=== PATIENT | male | born 1955 | race Caucasian/White ===

== ENCOUNTER 2025-05-20 12:22 | Emergency (ER) | payer MEDICARE, SELFPAY ==
[2025-05-20 12:23] VITALS: BP 157/103; PULSE 118; RESP 20; TEMP 36.4; O2SAT 96
[2025-05-20 12:27] VITALS: BP 141/92; PULSE 116; RESP 18; TEMP 36.4; O2SAT 97; BMI 26.2
--- NOTE | 2025-05-20 12:47 | CT_ITS ---
PROCEDURE: BRAIN/HEAD WITHOUT CONTRAST 05/20/2025 REASON FOR EXAM: ACUTE ALTERED MENTAL STATUS, RECENT FALL TECHNIQUE: Procedure Code: CTBR Modality: CT Procedure: BRAIN/HEAD WITHOUT CONTRAST Coronal and Sagittal reconstruction series were provided. One or more dose reduction techniques were used (e.g., Automated exposure control, adjustment of the mA and/or kV according to patient size, use of iterative reconstruction technique. RADIATION DOSE SUMMARY: CTDlvol: 45 mGy DLP: 829 mGycm COMPARISON: None FINDINGS: Brain: Small focus of intraparenchymal hemorrhage is seen directly superior to the lateral sulcus in the parietal lobe, likely the postcentral gyrus. This measures 14.5 x 13.5 x 8.6 mm. No evidence of acute ischemia. Mild low-density in the periventricular white matter from chronic microvascular ischemic change. CSF Spaces: No midline shift or mass effect. No hydrocephalus. Some calcification along the course of the choroid at the left temporal portion. Sinuses/Mastoids: Clear Bones: No skull fracture. Small amounts of venous gas are shown in the quality control assistant space, cavernous sinus region and along the superior sagittal sinus. CT/Brain/Head without Contrast IMPRESSION: Small intraparenchymal hemorrhage just superior to the lateral sulcus in the po stcentral gyrus on the right measures up to 14.5 mm. Non-specific small amounts of venous gas are shown in the quality control assistant space, cav ernous sinus region and superior sagittal sinus. A tiny amount of gas is shown in the right jugular vein is well when compared t o the neck/chest CT [place] Alert: Small intraparenchymal hemorrhage The critical findings in the findings and impression above were relayed directl y by me by telephone to Piyush Hebert on 05/20/2025 at 2:04 pm with readback verification. Reading Location: [id number]
--- NOTE | 2025-05-20 12:47 | CT_ITS ---
PROCEDURE: CTA CHEST W/WO CONTRAST; CTA ABD W/RUNOFF W/WO CONTRAST 05/20/2025 REASON FOR EXAM: 4943.46; NO SLOW LEFT LOWER EXTREMITY DISTAL FEMORAL ARTERY TECHNIQUE: Procedure Code: CTCTACHWW; [id number] Modality: CT Procedure: CTA CHEST W/WO CONTRAST; CTA ABD W/RUNOFF W/WO CONTRAST CT Angiography of the chest, abdomen and pelvis with runoff to the bilateral lower extremities. Multiplanar Sagittal and Coronal images were obtained. 3D post processing was performed. CONTRAST: Isovue-300 VOLUME: 100 mL One or more dose reduction techniques were used (e.g., Automated exposure control, adjustment of the mA and/or kV according to patient size, use of iterative reconstruction technique). RADIATION DOSE SUMMARY: DLP: 4943.46 mGycm COMPARISON: None available. FINDINGS: AORTA: Normal in course and caliber. No aneurysm or dissection. Mild-moderate atherosclerotic disease, primarily of the infrarenal abdominal aorta with eccentric noncalcified atheromatous plaque/mural thrombus. Major branch vessels of the celiac axis, SMA, LADI, and bilateral renal arteries are patent, normal in course and caliber. RIGHT LOWER EXTREMITY: Iliac arteries: Patent. No aneurysm or stenosis. Common Femoral: Patent, no significant stenosis. Superficial Femoral: Patent, with irregular mild stenosis from atherosclerotic plaque. Deep Femoral: Patent, no significant stenosis. Popliteal: Patent, with irregular mild-moderate stenosis due to atherosclerotic plaque. Lower extremity runoff: Patent proximal vessels of the trifurcation but the anterior and posterior tibial and peroneal arteries taper out below the level of the mid thigh and are not definitively patent distally. LEFT LOWER EXTREMITY: Iliac arteries: Patent, with moderate stenosis of the left common iliac artery due to prominent eccentric noncalcified atheromatous plaque. Widely patent internal and external iliac arteries. Common Femoral: Patent, with mild stenosis from atherosclerotic plaque. Superficial Femoral: Occluded shortly past the bifurcation, which reconstitutes distally with moderate-advanced irregular stenosis due to atheromatous plaque. Deep Femoral: Patent, without significant stenosis. Popliteal: Irregular advanced stenosis due to predominantly noncalcified atheromatous plaque. Lower extremity runoff: Occluded anterior tibial artery from its origin. Tibioperoneal trunk in the proximal posterior tibial and peroneal arteries are patent but taper off shortly past their origins and are not definitively patent distally below the mid thigh. NON-ANGIOGRAPHIC FINDINGS: HEART: Normal in size. No pericardial effusion. No significant coronary artery calcification. There is extensive bilateral central pulmonary arterial emboli. Elevated RV/LV diameter ratio and reflux of IV contrast into the IVC and hepatic veins consistent with right heart strain. MEDIASTINUM: Unremarkable, no significant lymphadenopathy. LUNGS/PLEURA: Clear. No airspace consolidation or findings of pulmonary edema, or pulmonary infarct. No pneumothorax or pleural effusions. The central airways are patent. HEPATOBILIARY: No significant abnormality. No biliary ductal dilatation. GENITOURINARY: Smoothly distended urinary bladder. Symmetric nephrograms. Few bilateral small subcentimeter nonobstructive renal stones. No hydroureteronephrosis. Several bilateral small simple appearing renal cysts. Normal adrenal glands. Nonenlarged prostate. GI TRACT: No evidence of obstruction or active inflammatory process. Normal appendix. PERITONEUM/RETROPERITONEUM: No ascites or free air. No lymphadenopathy. BONES: No acute or aggressive osseous abnormality. Degenerative changes of the spine with DISH. CT/CTA Abd w/Runoff W/WO Contrast IMPRESSION: 1. Extensive bilateral central pulmonary arterial emboli. Evidence of right hea rt strain. 2. No aortic aneurysm or dissection. Moderate-advanced iliofemoral and lower ex tremity atherosclerotic disease. 3. Right leg arterial vasculature is patent to the level of the knee. Proximal trifurcation vessels are patent but taper out past the level of the mid thigh and are not definitively patent distally. 4. Left leg arterial vasculature demonstrates moderate stenosis of the left com mon iliac artery, occlusion of the proximal to mid superficial femoral artery which reconstitutes distally with advanced stenosis through to the popliteal artery. Left anterior tibial artery is occluded from its origin. Posterior tibial and peroneal arter ies are patent proximally but shortly taper off and not definitively patent past the mid thigh. 5. Additional ancillary findings/details as described above. Reading Location: [id number]
--- NOTE | 2025-05-20 12:49 | EX.ED.DYSGE1 ---
HPI History of Present Illness Chief Complaint: Confusion Detail of Chief Complaint: is the informant since he has acute confusion Informant: spouse/S.O. Onset/Context/Timing Onset: - (Detailed HPI narrative because symptoms started at different times) Context: Gradual Onset (With respect to thirst and increased urination and nocturia) and Sudden Onset (Change in mental status) Timing: Continuous Quality: HPI narrative Location: Not applicable Current Severity: Severe Maximum Severity: Severe Worsened by: Unknown Relieved by: Nothing Associated Symptoms Associated Symptoms: Fall per Narrative Narrative: Patient is 70-year-old male has not seen a physician in some time. He is on no medication. He has been having polyuria, nocturia and increased thirst for some time. He has no history of diabetes. Today went out to run errands. When she came back he was found on the bathroom floor confused with feces and urine on the floor. Patient does not know his age or month. He denies back or abdominal pain. His states he is cold. He did shake. History is limited to what the is able to tell me. He apparently has no allergies. Prior similar symptoms: No Recent Illness/Hospitalization: No PFSH PFSH Medical History (Updated 05/20/25 @ 14:[address] Piyush Hebert MD) CVA (cerebral vascular accident) Allergy/AdvReac Type Severity Reaction Status Date / Time No Known Allergies Allergy Verified 05/20/25 12:26 Social History (Updated 05/20/25 @ 12:[address] Piysuh Hebert MD) household members: spouse Smoking Status: Former smoker ROS ROS ED Review of Systems ROS Unobtainable: due to mental status EXAM Physical Exam Const Vital Signs: 05/20/25 12:23 05/20/25 12:27 05/20/25 13:23 Temperature 97.6 F L 97.6 F L Temperature Source Oral Oral Pulse Rate 118 H 116 H 110 H Respiratory Rate 20 H 18 23 H Blood Pressure 157/103 H 141/92 H 119/79 Blood Pressure Mean 121 108 92 Pulse Ox 96 97 97 Oxygen Delivery Method Room Air Room Air Nasal Cannula Oxygen Flow Rate (L/min) 2 05/20/25 14:00 05/20/25 14:16 Temperature 97.9 F Temperature Source Pulse Rate 111 H 111 H Respiratory Rate 20 H 22 H Blood Pressure 132/121 H 132/121 H Blood Pressure Mean 124 124 Pulse Ox 95 100 Oxygen Delivery Method Room Air Oxygen Flow Rate (L/min) Positive well developed, cachectic and unkempt; Negative for well nourished Constitutional Narrative: According to he has been incontinent for the past 3 months. He has had polyuria, polydipsia and nocturia as well. General Appearance ED: unkempt, well developed, cachectic and cyanotic; Negative for diaphoretic or NAD Nutritional Appearance: cachectic HEENT HEENT Narrative: There is no obvious head trauma. There is no clinical signs of basilar skull fracture. Eyes PERRL General Eye ED: Negative for pale conjunctiva or scleral icterus Neck no lymphadenopathy, supple and no JVD Chest Wall inspection of chest normal and palpation of chest normal Resp normal respiratory effort and clear to auscultation bilaterally Resp Narrative: Decreased breath sounds bilaterally. He is slightly tachypneic. Cardio regular rhythm, S1 normal heart sound, S2 normal heart sound and no murmurs Rate: tachycardic GI no masses; Negative for normal to inspection, nondistended, normoactive bowel sounds, non-tender, non-distended or hepatosplenomegaly GI Narrative: Abdomen is slightly distended. Patient is mottled from the umbilicus distally to his feet. His left lower extremity is cold. There is no palpable popliteal, posterior tibial or dorsalis pedal pulse. There is no flow noted either. Palpation: soft Narrative: External genitalia normal. Extremity Extremity Narrative: Mottled extremities bilaterally. Cold pale mottled left lower extremity. Mottled right lower extremity. The leg is warm. There is palpable pulses. Capillary refill is delayed both sides. Neuro No oriented x3 and No CN's II-XII intact bilaterally Sensorium / Orientation: Negative for alert Psych Appearance: unkempt Skin Skin Narrative: Mottled as described. He has acrocyanosis of his fingers as well. MDM MDM MDM Narrative Medical decision making narrative: Initial thought was this may represent sepsis because of altered mental status with rigors. Need to rule out intracranial bleed because of fall and acute change in mental status. Also concerned about possible occlusion of his main artery distal the left femoral on the left side. Would also need to consider possible aortic dissection and aortic abdominal aneurysm. Will have nursing staff place a temperature [place] for accurate I's and O's as well as temperature. Additional labs were ordered from initial labs. Contacted CT to perform the CT with contrast even though lab results are not available since patient is critical and has altered sensation on the left lower extremity as well which raises concern for ischemic leg. History & Record Review Additional record(s) reviewed:: No prior records Lab Data Labs: Laboratory Results - last 24 hr 05/20/25 05/20/25 05/20/25 12:30 12:49 13:37 WBC 14.3 H RBC 5.95 Hgb 17.3 H Hct 52.5 MCV 88.2 MCH 29.1 MCHC 33.0 RDW Std Deviation 43.6 RDW Coeff of [place] 13.5 Plt Count 306 MPV 11.0 Immature Gran % (Auto) 1.000 H Neut % (Auto) 89.5 H Lymph % (Auto) 3.9 L [place] % (Auto) 5.3 Eos % (Auto) 0.0 Baso % (Auto) 0.3 Absolute Neuts (auto) 12.8 H Absolute Lymphs (auto) 0.56 L Nucleated RBC % 0 PT 15.1 H INR 1.2 APTT 23.9 L Sodium 123 L Potassium 6.0 H* Chloride 83 L Carbon Dioxide 11.6 L Anion Gap 28 H BUN 43 H Creatinine 2.03 H Estim Creat Clear Calc 34.83 L Est GFR (MDRD) Non-Af 35 L BUN/Creatinine Ratio 21.1 H Glucose 1270 H* Lactic Acid 6.5 H* Calcium 9.6 Magnesium 3.0 H Total Bilirubin 0.58 AST 50 H ALT 75 H Alkaline Phosphatase 157 H Troponin T High Sens 105 H* Total Protein 7.5 Albumin 4.2 Globulin 3.4 Albumin/Globulin Ratio 1.2 b-Hydroxybutyric mmol/L 4.4 H Urine Color Yellow Urine Clarity Clear Urine pH 6.0 Ur Specific [place] 1.015 Urine Protein 30 H Urine Glucose (UA) 1000 H Urine Ketones 15 H Urine Occult Blood 10 H Urine Nitrite Negative Urine Bilirubin Negative Urine Urobilinogen Normal Ur Leukocyte Esterase Negative Urine RBC 0 SEEN Urine WBC 0 SEEN Ur Squamous Epith Cells 0 SEEN Urine Bacteria 0 SEEN Urine Mucus 0 SEEN Beta-hydroxybutyrate is mildly elevated. Suspect patient also has mild onset diabetic ketoacidosis, newly diagnosed ABG Data Attestation: I personally reviewed and interpreted this ABG as follows: Interpretation: ABG reveals a metabolic acidosis with increased AA gradient. Suspect this is due to massive pulmonary embolus with obstructive cardiac shock. ABG results: ABG 05/20/25 13:00 Specimen Type ART Sample Site L Radial pH 7.30 L Bicarbonate Actual 10.0 L Total CO2 11 Base Excess -16 L O2 Saturation 94 L O2 % 21.0 ABG pCO2 20.2 L ABG pO2 76 Akhil Test Negative O2 Delivery Device Not entered Vent Mode Not entered Radiography Chest X-Ray - ED: 1 View, Read by ED Physician, Heart, Mediastinum, Bony Structures and No Acute Disease Diagnostic Testing: Clinical Impression(s) from Imaging Studies Brain CT 05/20/25 12:47 IMPRESSION: Small intraparenchymal hemorrhage just superior to the lateral sulcus in the postcentral gyrus on the right measures up to 14.5 mm. Non-specific small amounts of venous gas are shown in the final inspector motorcyles space, cavernous sinus region and superior sagittal sinus. A tiny amount of gas is shown in the right jugular vein is well when compared to the neck/chest CT [place] Alert: Small intraparenchymal hemorrhage The critical findings in the findings and impression above were relayed directly by me by telephone to Piyush Hebert on 05/20/2025 at 2:04 pm with readback verification. Reading Location: [id number] Chest X-Ray 05/20/25 13:05 IMPRESSION: No Acute Findings. Reading Location: [id number] CT of the head reveals a left subdural as well as pneumocephalus. I do not see an obvious fracture. CTA of the abdomen with runoffs revealed pulmonary embolus. Added formal CT of the chest which reveals bilateral pulmonary embolus in the main right and left pulmonary artery. There is but all likelihood expansion of mottled extremities and cyanosis. Secondaries been asked to contact [facility] for emergent transfer for thrombectomy since patient cannot be anticoagulated. EKG Initial EKG: Attestation: I personally reviewed and interpreted this EKG as follows: Interpretation: Sinus Tachycardia (Rate is 116. [place] to the left. ME was 142 ms. Cures duration 104 ms. QT duration 372 ms. Patient has what appears to be ischemic changes in his anterior leads V3 and V4. There are no old EKGs for comparison) Management Discussion w/another healthcare provider: Knapsack Sprayer, Radiologist and Other Critical Care Time Critical Care Time: Yes Critical care time (excluding procedures): 30-74 minutes (44), Including time spent: (History, physical, documentation, independent or potation of images), Discussing w/Patient &/or Family/Park Recreation Manager ( was informed of results and need for transfer. Will attempt tertiary center for emergent thrombectomy with neurosurgery consult and ICU consult), Discussing w/Consultants and Arranging Admission or Transfer Discharge Plan Triage Chief Complaint: Confusion ED Provider: Piyush Hebert Dx/Rx/DC Orders Clinical Impression: Acute saddle pulmonary embolism, Obstructive cardiovascular shock, Hematoma, subdural, with loss of consciousness, traumatic, Acidosis, lactic, Elevated troponin, Abnormal ECG, Sinus tachycardia, Hypermagnesemia, DKA, type 1, Acute hyperkalemia, Pneumocephalus, Pseudohyponatremia Primary Care Provider: Care Physician,No Primary Referrals: NOT,DEFINED [Non-Staff, None] Print Language: Portuguese Disposition Disposition: Acute Care Hospital Discharge Location: [facility] Discharge Date/Time: 05/20/25 14:35
[2025-05-20] MEDS: 0.9% Normal Saline (1000mL) 1,000 ML 999 ML IV (12:53)
[2025-05-20 13:04] LABS: Allen Test Negative; Base Excess -16 mmol/L (-2 to +2); FI02 21.0; PO2 76 mmHG (75-100); SITE L Radial; SO2 94 % (95-99)
--- NOTE | 2025-05-20 13:05 | RAD_ITS ---
PROCEDURE: CHEST 1 VIEW (PORTABLE) 05/20/2025 REASON FOR EXAM: [place] TECHNIQUE: Frontal view of the chest. FINDINGS: The heart is normal in size. The lungs are clear. No acute osseous abnormalities. RAD/Chest 1 View (Portable) IMPRESSION: No Acute Findings. Reading Location: [id number]
[2025-05-20 13:23] VITALS: BP 119/79; PULSE 110; RESP 23; O2SAT 97
[2025-05-20 13:39] LABS: BETA-HYDROXYBUTYRATE 4.4 mmol/L (0.0-0.3); Magnesium 3.0 mg/dL (1.5-2.2); Troponin T High Sensitivity 105 ng/L (<=22)
[2025-05-20 13:40] LABS: Mucous, Urine 0 SEEN /hpf (<or=2+); Red Blood Cells-Urine 0 SEEN /hpf (0-5); Squamous Epithelial Cells - UA 0 SEEN /hpf (0-5)
[2025-05-20 13:42] LABS: Prothrombin Time (Protime)PT. 15.1 SECONDS (11.7-14.9)
[2025-05-20 13:43] LABS: Partial Thromboplast Time 23.9 Seconds (24.1-36.2)
[2025-05-20 13:51] LABS: Color, Urine Yellow (Yellow); Glucose, Dipstick 1000 mg/dl (Normal); Ketone-Dipstick 15 mg/dl (Negative); Leukocyte Esterase-Dipstick Negative /ul (Negative); Nitrite-Dipstick Negative (Negative); Occult Blood-Urine 10 /ul (Negative); Protein-Dipstick 30 mg/dl (Negative); Specific Gravity, Urine 1.015 (1.002-1.030); Urine Bilirubin Dipstick Negative (Negative)
[2025-05-20 13:51] LABS: Hematocrit 52.5 % (40-54); Hemoglobin 17.3 g/dL (13.0-16.5); Immature Granulocytes Count 0.140 X10^3/uL (0.0-0.0); Mean Corp Hgb Conc 33.0 g/dL (32-36); Mean Corpuscular Volume 88.2 fL (80-94); Mean Platelet Vol. 11.0 fl (6.2-12.0); NRBC Flagged by Analyzer 0 % (0-5); POSITIVE DIFFERENTIAL YES; Platelet Count 306 K/mm3 (150-450); RBC Distribution Width CV 13.5 % (11.6-14.6); RBC Distribution Width SD 43.6 fl (35.1-43.9); Red Blood Count 5.95 M/mm3 (4.6-6.2); White Blood Count 14.3 K/mm3 (4.4-11.0)
[2025-05-20 13:53] LABS: AST(SGOT) 50 U/L (<=37); Alanine Aminotransfer ALT/SGPT 75 U/L (<=46); Albumin, Serum 4.2 g/dL (3.4-4.8); Alkaline Phosphatase 157 U/L (40-129); Anion Gap 28 (5-15); BUN 43 mg/dL (4-19); BUN/Creat Ratio 21.1 RATIO (10-20); Calcium,Total 9.6 mg/dL (7.6-11.0); Carbon Dioxide 11.6 mmol/L (21.0-32.0); Chloride 83 mmol/L (98-108); Estimated Creatinine Clearance 34.83 ml/min (50-250); Globulin 3.4 g/dL (2.2-4.2); Glucose 1270 mg/dL (70-99); Potassium 6.0 mmol/L (3.3-5.1)
[2025-05-20 14:00] VITALS: BP 132/121; PULSE 111; RESP 20; O2SAT 95
[2025-05-20] MEDS: Sodium Bicarbonate 8.4% 50 ML Syringe 50 MEQ IV (14:07)
[2025-05-20] MEDS: Insulin Lispro 100 UNIT in 0.9% Normal Saline (100mL Bag) 99 ML 13.8 UNIT CONT INF (14:09)
[2025-05-20 14:16] VITALS: BP 132/121; PULSE 111; RESP 22; TEMP 36.6; O2SAT 100
--- NOTE | 2025-05-20 14:33 | ED.RN ---
report given to Jazmin SU at [facility]
[2025-05-20 16:55] LABS: Reflex Lactate? Y
== END 2025-05-20 14:35 | disposition short-term general hospital (02) ==
PROVIDERS: Emergency Provider Emergency Medicine; Visit Provider Emergency Medicine
DX: E10.10 Type 1 diabetes mellitus with ketoacidosis without coma (principal); R57.8 Other shock; I26.92 Saddle embolus of pulmonary artery without acute cor pulmonale; S06.5X9A Traumatic subdural hemorrhage with loss of consciousness of unspecified duration, initial encounter; R41.82 Altered mental status, unspecified; R35.1 Nocturia; G93.89 Other specified disorders of brain; R94.31 Abnormal electrocardiogram [ECG] [EKG]; W19.XXXA Unspecified fall, initial encounter; E87.5 Hyperkalemia; Z87.891 Personal history of nicotine dependence; R00.0 Tachycardia, unspecified; E83.41 Hypermagnesemia; R79.89 Other specified abnormal findings of blood chemistry; I73.89 Other specified peripheral vascular diseases; I99.9 Unspecified disorder of circulatory system; Z86.73 Personal history of transient ischemic attack (TIA), and cerebral infarction without residual deficits
CPT/HCPCS: 36600; 70450; 71045; 71275; 75635; 80053; 81001; 82010; 82803; 83605; 83735; 84484; 85025; 85610; 85730; 87040; 93005; 96374; 96375; 99285; Q9967; A4216